=== PATIENT | male | born 1985 | race Caucasian/White ===

== ENCOUNTER 2024-12-16 17:42 | Inpatient (IN) | payer BC, MEDICAID ==
[~2024-12-16] VITALS: Ht 177.8 cm; Wt 78.0 kg
[~2024-12-16 17:42] MED LIST: INSULIN REGULAR IN 0.9 % NACL 100 UNIT in IV 1 EA IV SCH
[2024-12-16 18:24] LABS: VENOUS BASE EXCESS -15.6 (-2.0-2.0); VENOUS HCO3 9.6 MMOL/L (23.0-27.0); VENOUS O2 SATURATION 71.5 % (60.0-80.0); VENOUS PARTIAL PRESSURE CO2 23.1 mmHg (38.0-50.0); VENOUS PARTIAL PRESSURE O2 42.5 mmHg (30.0-50.0); VENOUS PH 7.238 UNITS (7.330-7.430); VENOUS STANDARD HCO3 12.6 MMOL/L; VENOUS TOTAL CO2 10.3 MMOL/L (24.0-28.0)
[2024-12-16 18:28] LABS: BASO # 0.0 10^3/uL (0.0-0.2); BASO % 0.4 % (0.0-1.0); EOS # 0.0 10^3/uL (0.0-0.5); EOS % 0.1 % (0.0-3.0); LYMPH # 0.9 10^3/uL (1.5-5.0); LYMPH % 12.6 % (24.0-44.0); MONO # 0.7 10^3/uL (0.0-0.8); MONO % 10.1 % (2.0-8.0); NEUTROPHILS # 5.3 10^3/uL (1.5-8.5); NEUTROPHILS % 75.8 % (36.0-66.0); PLATELET COUNT, AUTOMATED 293 10^3/uL (150-450)
[2024-12-16] MEDS: NS (Normal Saline) 0.9% 1,000 ML IV ONE (18:33)
[2024-12-16 18:45] LABS: ESTIMATED AVERAGE GLUCOSE 180.0 MG/DL (60-110)
[2024-12-16 19:12] LABS: VENOUS BASE EXCESS -15.7 (-2.0-2.0); VENOUS HCO3 8.0 MMOL/L (23.0-27.0); VENOUS O2 SATURATION 98.2 % (60.0-80.0); VENOUS PARTIAL PRESSURE CO2 17.0 mmHg (38.0-50.0); VENOUS PARTIAL PRESSURE O2 119.3 mmHg (30.0-50.0); VENOUS PH 7.290 UNITS (7.330-7.430); VENOUS STANDARD HCO3 13.0 MMOL/L; VENOUS TOTAL CO2 8.5 MMOL/L (24.0-28.0)
[2024-12-16] MEDS ORDERED: ISOVUE-370 76% 100 ML VIAL As Ordered ONE (19:18)
[2024-12-16 19:46] LABS: ETHYL ALCOHOL (ETHANOL) < 0.003 % (0.000-0.010)
[2024-12-16 19:48] LABS: SALICYLATE LEVEL < 3.0 MG/DL (<30)
[2024-12-16 19:52] LABS: ACETONE/KETONE > 4.50 MMOL/L (0.02-0.27); ALT/SGPT 67 U/L (7.0-40); AST/SGOT 33 U/L (<34); CALCIUM LEVEL 11.0 MG/DL (8.5-10.1); CARBON DIOXIDE LEVEL < 10.0 MMOL/L (20-31); CHLORIDE LEVEL 89 MMOL/L (98-107); CREATININE FOR GFR 0.95 MG/DL (0.70-1.30); GLOMERULAR FILTRATION RATE > 90.0 (>60); POTASSIUM SERUM 5.0 MMOL/L (3.5-5.1); SODIUM LEVEL 126 MMOL/L (136-145)
[2024-12-16] MEDS ORDERED: INSULIN IV RATE CHANGE DOCUMENTATION ML/HR XX SCH (20:55)
[2024-12-16] MEDS: D5W/0.45% SODIUM CHLORIDE 1,000 ML IV SCH (21:55)
[2024-12-16 22:06] LABS: KETONE, URINE AUTO RFX 2+ mg/dL (NEGATIVE); LEUKOCYTE ESTERASE UR AUTO RFX NEGATIVE (NEGATIVE); MUCUS, URINE RFX SMALL (NEGATIVE); NITRITE, URINE AUTO RFX NEGATIVE (NEGATIVE); RBC, URINE AUTO RFX 0 /HPF (0-3); SQUAM EPITHELIAL CELL UR AURFX 0 /HPF (0-6); WBC, URINE AUTO RFX 0 /HPF (0-3)
[2024-12-16] MEDS: INSULIN REGULAR IN 0.9 % NACL 100 UNIT in IV 1 EA IV SCH (22:07)
[2024-12-16 22:27] LABS: AMPHETAMINES LEVEL URINE NEGATIVE (NEGATIVE); BARBITURATES URINE NEGATIVE (NEGATIVE); BENZODIAZEPINES URINE NEGATIVE (NEGATIVE); CANNABINOIDS URINE NEGATIVE (NEGATIVE); COCAINE METABOLITE URINE NEGATIVE (NEGATIVE); METHADONE URINE NEGATIVE (NEGATIVE); OPIATES URINE NEGATIVE (NEGATIVE); PHENCYCLIDINE URINE NEGATIVE (NEGATIVE)
[2024-12-16] MEDS ORDERED: MULTIVITAMIN -ADULT INJECTION 10 ML, THIAMINE INJection 100 MG, FOLIC ACID 1 MG in NS (... IV ONE ×2 (23:00→23:40)
[2024-12-16] MEDS ORDERED: THIAMINE 200MG 2ML VIAL IV SCH (23:05)
[2024-12-16] MEDS: HALOPERIDOL LACTATE 5 MG/ML VIAL IV ONE (23:33)
[2024-12-17 00:39] LABS: VENOUS BASE EXCESS -14.3 (-2.0-2.0); VENOUS HCO3 9.8 MMOL/L (23.0-27.0); VENOUS O2 SATURATION 99.0 % (60.0-80.0); VENOUS PARTIAL PRESSURE CO2 20.6 mmHg (38.0-50.0); VENOUS PARTIAL PRESSURE O2 180.6 mmHg (30.0-50.0); VENOUS PH 7.295 UNITS (7.330-7.430); VENOUS STANDARD HCO3 13.8 MMOL/L; VENOUS TOTAL CO2 10.4 MMOL/L (24.0-28.0)
[2024-12-17 01:12] LABS: VENOUS BASE EXCESS -14.9 (-2.0-2.0); VENOUS HCO3 9.6 MMOL/L (23.0-27.0); VENOUS O2 SATURATION 99.4 % (60.0-80.0); VENOUS PARTIAL PRESSURE CO2 21.0 mmHg (38.0-50.0); VENOUS PARTIAL PRESSURE O2 181.5 mmHg (30.0-50.0); VENOUS PH 7.277 UNITS (7.330-7.430); VENOUS STANDARD HCO3 13.4 MMOL/L; VENOUS TOTAL CO2 10.2 MMOL/L (24.0-28.0)
[2024-12-17 01:12] LABS: CALCIUM LEVEL 9.4 MG/DL (8.5-10.1); CARBON DIOXIDE LEVEL 11 MMOL/L (20-31); CHLORIDE LEVEL 101 MMOL/L (98-107); CREATININE FOR GFR 0.78 MG/DL (0.70-1.30); GLOMERULAR FILTRATION RATE > 90.0 (>60); PHOSPHORUS LEVEL 3.0 MG/DL (2.5-4.9); POTASSIUM SERUM 4.6 MMOL/L (3.5-5.1); SODIUM LEVEL 134 MMOL/L (136-145)
[2024-12-17] MEDS: D5W/0.45% SODIUM CHLORIDE 1,000 ML IV SCH (01:15)
[2024-12-17 01:16] LABS: OSMOLALITY SERUM 305 MOSM/KG (275-295)
[2024-12-17] MEDS: MULTIVITAMIN -ADULT INJECTION 10 ML, THIAMINE INJection 100 MG, FOLIC ACID 1 MG in NS (... IV ONE (01:16)
[2024-12-17] MEDS: PANTOPRAZOLE 40MG VIAL IV SCH (01:16)
[2024-12-17 01:41] LABS: OSMOLALITY SERUM 305 MOSM/KG (275-295)
[2024-12-17 01:45] LABS: CALCIUM LEVEL 9.3 MG/DL (8.5-10.1); CARBON DIOXIDE LEVEL 11 MMOL/L (20-31); CHLORIDE LEVEL 98 MMOL/L (98-107); CREATININE FOR GFR 0.79 MG/DL (0.70-1.30); GLOMERULAR FILTRATION RATE > 90.0 (>60); PHOSPHORUS LEVEL 3.3 MG/DL (2.5-4.9); POTASSIUM SERUM 4.1 MMOL/L (3.5-5.1); SODIUM LEVEL 132 MMOL/L (136-145)
[2024-12-17] MEDS ORDERED: INSULIN IV RATE CHANGE DOCUMENTATION ML/HR XX SCH (04:00)
[2024-12-17 04:30] VITALS: BP 129/74; TEMP 98.9; O2SAT 100
[2024-12-17 05:00] VITALS: O2SAT 100
[2024-12-17] MEDS: THIAMINE INJection 500 MG in NS 100 ML IV SCH (05:32)
[2024-12-17 07:34] LABS: VENOUS BASE EXCESS -10.5 (-2.0-2.0); VENOUS HCO3 14.0 MMOL/L (23.0-27.0); VENOUS O2 SATURATION 99.0 % (60.0-80.0); VENOUS PARTIAL PRESSURE CO2 27.5 mmHg (38.0-50.0); VENOUS PARTIAL PRESSURE O2 151.8 mmHg (30.0-50.0); VENOUS PH 7.325 UNITS (7.330-7.430); VENOUS STANDARD HCO3 16.3 MMOL/L; VENOUS TOTAL CO2 14.9 MMOL/L (24.0-28.0)
[2024-12-17 08:00] VITALS: BP 130/80; TEMP 99.1; O2SAT 99
[2024-12-17 08:07] LABS: CALCIUM LEVEL 7.2 MG/DL (8.5-10.1); CARBON DIOXIDE LEVEL 15 MMOL/L (20-31); CHLORIDE LEVEL 104 MMOL/L (98-107); CREATININE FOR GFR 0.61 MG/DL (0.70-1.30); GLOMERULAR FILTRATION RATE > 90.0 (>60); PHOSPHORUS LEVEL 2.4 MG/DL (2.5-4.9); POTASSIUM SERUM 4.0 MMOL/L (3.5-5.1); SODIUM LEVEL 135 MMOL/L (136-145)
[2024-12-17] MEDS: ENOXAPARIN 40 MG/0.4 ML SYRINGE (J1650 PER 10MG) SC SCH (08:19)
[2024-12-17] MEDS: INSULIN REGULAR IN 0.9 % NACL 100 UNIT in IV 1 EA IV SCH (08:38)
[2024-12-17 11:01] LABS: VENOUS BASE EXCESS -7.1 (-2.0-2.0); VENOUS HCO3 15.8 MMOL/L (23.0-27.0); VENOUS O2 SATURATION 99.3 % (60.0-80.0); VENOUS PARTIAL PRESSURE CO2 25.1 mmHg (38.0-50.0); VENOUS PARTIAL PRESSURE O2 240.5 mmHg (30.0-50.0); VENOUS PH 7.416 UNITS (7.330-7.430); VENOUS STANDARD HCO3 18.8 MMOL/L; VENOUS TOTAL CO2 16.5 MMOL/L (24.0-28.0)
[2024-12-17 11:52] LABS: CALCIUM LEVEL 7.2 MG/DL (8.5-10.1); CARBON DIOXIDE LEVEL 17 MMOL/L (20-31); CHLORIDE LEVEL 106 MMOL/L (98-107); CREATININE FOR GFR 0.65 MG/DL (0.70-1.30); GLOMERULAR FILTRATION RATE > 90.0 (>60); PHOSPHORUS LEVEL 2.0 MG/DL (2.5-4.9); POTASSIUM SERUM 3.9 MMOL/L (3.5-5.1); SODIUM LEVEL 135 MMOL/L (136-145)
[2024-12-17 12:00] VITALS: BP 142/77; TEMP 98.8; O2SAT 100
[2024-12-17] MEDS ORDERED: GLUCAGON INJ 1 MG VIAL SC PRN (12:00)
[2024-12-17] MEDS ORDERED: GLUCOSE 4 GM CHEW PO PRN (12:00)
[2024-12-17] MEDS ORDERED: DEXTROSE 50% 50 ML SYRINGE IV PRN (12:00)
[2024-12-17] MEDS: LanTUS (INSULIN GLARGINE INJ) 1 UNITS/0.01 ML SC SCH (12:23)
[2024-12-17] MEDS ORDERED: ONDANSETRON 4MG 2ML VIAL IV PRN (13:30)
[2024-12-17] MEDS: OXAZEPAM 15MG CAP PO SCH (13:59)
[2024-12-17] MEDS: FOLIC ACID 1 MG TAB PO SCH (13:59)
[2024-12-17 14:38] LABS: MAGNESIUM LEVEL 2.1 MG/DL (1.8-2.4)
[2024-12-17] MEDS ORDERED: JARD1TAB3 PO (15:57)
[2024-12-17] MEDS ORDERED: TIRZ2.5P SQ (15:57)
[2024-12-17] MEDS ORDERED: MED REC COMMENT (15:57)
[2024-12-17] MEDS ORDERED: LAMO250T PO (15:57)
[2024-12-17] MEDS ORDERED: ATOR40TA75 PO (15:57)
[2024-12-17] MEDS ORDERED: LISI5TAB11 PO (15:57)
[2024-12-17] MEDS ORDERED: HOME MED LIST COMPLETE! XX SCH (16:00)
[2024-12-17] MEDS: INSULIN LISPRO (NovoLOG) PER UNIT SC SCH ×2 (18:23→20:50)
[2024-12-17 20:00] VITALS: BP 128/89; TEMP 98.6; O2SAT 100
[2024-12-17] MEDS: K-PHOS ORIGINAL (POT.ACID PHOSPHATE) 500 MG TAB PO SCH (21:06)
[2024-12-18 03:33] VITALS: BP 142/83; TEMP 98.1; O2SAT 100
[2024-12-18 05:09] LABS: BASO # 0.0 10^3/uL (0.0-0.2); BASO % 1.1 % (0.0-1.0); EOS # 0.1 10^3/uL (0.0-0.5); EOS % 2.2 % (0.0-3.0); LYMPH # 1.0 10^3/uL (1.5-5.0); LYMPH % 25.7 % (24.0-44.0); MONO # 0.5 10^3/uL (0.0-0.8); MONO % 13.3 % (2.0-8.0); NEUTROPHILS # 2.1 10^3/uL (1.5-8.5); NEUTROPHILS % 56.9 % (36.0-66.0); PLATELET COUNT, AUTOMATED 177 10^3/uL (150-450)
[2024-12-18 05:35] LABS: CALCIUM LEVEL 7.1 MG/DL (8.5-10.1); CARBON DIOXIDE LEVEL 20 MMOL/L (20-31); CHLORIDE LEVEL 104 MMOL/L (98-107); CREATININE FOR GFR 0.55 MG/DL (0.70-1.30); GLOMERULAR FILTRATION RATE > 90.0 (>60); POTASSIUM SERUM 3.4 MMOL/L (3.5-5.1); SODIUM LEVEL 136 MMOL/L (136-145)
[2024-12-18 08:00] VITALS: BP 127/72; TEMP 97.1; O2SAT 99
[2024-12-18] MEDS: POTASSIUM CHLORIDE 10MEQ SR TABLET PO ONE (08:23)
[2024-12-18] MEDS ORDERED: LanTUS (INSULIN GLARGINE INJ) 1 UNITS/0.01 ML SC SCH (09:00)
[2024-12-18] MEDS ORDERED: FOLI1TAB11 PO (09:51)
[2024-12-18] MEDS ORDERED: THIA100TA PO (09:51)
[2024-12-18] MEDS ORDERED: OXAZ15CA4 PO (10:07)
[2024-12-18] MEDS ORDERED: PANT40TA29 PO (10:07)
[2024-12-18 10:34] LABS: PHOSPHORUS LEVEL 1.9 MG/DL (2.5-4.9)
== END 2024-12-18 10:40 | disposition home or self-care (01) | DRG 420 ==
LOC: M ED 17:42 → M ED INP 23:08 → M ICU 12-17 04:23
PROVIDERS: ADMIT Student in an Organized Health Care Education/Training Program; ATTEND Student in an Organized Health Care Education/Training Program
DX: E11.10 Type 2 diabetes mellitus with ketoacidosis without coma (principal); G93.41 Metabolic encephalopathy; F10.231 Alcohol dependence with withdrawal delirium; I10 Essential (primary) hypertension; F41.9 Anxiety disorder, unspecified; E87.1 Hypo-osmolality and hyponatremia; Z79.84 Long term (current) use of oral hypoglycemic drugs; Z79.899 Other long term (current) drug therapy